=== PATIENT | male | born 1995 | race Caucasian/White ===

== ENCOUNTER 2016-11-20 02:14 | Emergency (ER) | payer BC ==
[~2016-11-20 02:14] MED LIST: PSORIASIS MED
[2016-11-20] MEDS ORDERED: CLOBETASOL EMOL50 GM TP (02:23)
[2016-11-20 03:23] LABS: BASO % 0.1 % (0-2); EOS % 0.5 % (0-7); EOSINOPHIL ABSOLUTE COUNT 0.1 tho/cmm (0.0-0.7); HCT-HEMATOCRIT 39.5 % (36.0-53.5); HGB-HEMOGLOBIN 13.4 gm/dl (13.5-17.0); IMMATURE GRANULOCYTES ABSOLUTE 0.04 tho/cmm (0-0.03); IMMATURE GRANULOCYTES PERCENT 0.3 % (0-0.3); LYMPH % 8.5 % (20-45); LYMPH ABSOLUTE COUNT 1.2 tho/cmm (0.8-4.5); MCH (MEAN CORPUSCULAR HGB) 30.5 pg (28.0-32.0); MCHC MEAN CORPUSCULAR HGB CONC 33.9 % (32.0-36.0); MCV (MEAN CELL VOLUME) 89.8 fl (82.0-96.0); MEAN PLATELET VOLUME 11.7 cmc (9.4-12.4); MONO % 8.5 % (0-12); MONOCYTE ABSOLUTE COUNT 1.2 tho/cmm (0.0-1.2); NEUTROPHIL ABSOLUTE COUNT 11.7 tho/cmm (1.6-8.0); NEUTROPHIL-AUTOMATED 11.7 tho/cmm (1.6-8.0); NEUTROPHILS % 82.1 % (40-80); PLATELET COUNT 186 tho/cmm (150-450); RED CELL DISTRIBUTION WIDTH 13.3 % (12.4-16.4); WHITE BLOOD COUNT 14.3 tho/cmm (4.0-10.0)
== END 2016-11-20 05:06 ==
LOC: EDMED 02:14
PROVIDERS: Emergency Medicine
DX: B34.9 Viral infection, unspecified (principal)
CPT/HCPCS: J2405; J7030